=== PATIENT | female | born 1945 | race Caucasian/White ===

== ENCOUNTER 2020-06-20 20:55 | Observation (INO) ==
[2020-06-20] MEDS ORDERED: Naloxone 0.4 MG/ML INJ IVP PRN (23:24)
[2020-06-20] MEDS ORDERED: Ondansetron 4 MG/2 ML VIAL IVP PRN (23:24)
[2020-06-20] MEDS ORDERED: Perflutren Lipid Microsphere 1.3 ML in 0.9 % Sodium Chloride 8.7 ML IVP PRN (23:28)
[2020-06-21] MEDS ORDERED: *HR* Heparin 5,000 UNIT/ML VIAL IVP PRN ×2 (02:04)
[2020-06-21] MEDS ORDERED: Heparin 25,000UNIT/250ML 1/2NS 25,000 UNIT/250 ML IV.SOLN IVC SCH (02:15)
[2020-06-21] MEDS ORDERED: DilTIAZem 50 MG/50 ML IV.SOLN IVC SCH (02:15)
[2020-06-21 02:41] LABS: Hematocrit 41.6 % (35.3-44.9); Hemoglobin 13.6 g/dL (11.5-15.4); Mean Corpuscular HGB Conc 32.7 g/dL (31.6-35.5); Mean Corpuscular Hemoglobin 30.8 pg (28.0-33.3); Mean Corpuscular Volume 94.1 fL (83.0-100.0); Mean Platelet Volume 10.2 fL (9.4-12.4); Platelet Count 295 K/mcL (140-400); Red Blood Count 4.42 M/mcL (3.82-4.97); Red Cell Distribution Width 11.9 % (11.5-14.5); White Blood Count 13.6 K/mcL (4.3-11.1)
[2020-06-21 02:54] LABS: Prothrombin Time 12.1 Seconds (9.4-12.1)
[2020-06-21 03:02] LABS: BUN/Creatinine Ratio 21 (6-26); Blood Urea Nitrogen 19 mg/dL (8-23); Calcium 9.4 mg/dL (8.6-10.3); Carbon Dioxide 20 mEq/L (23-29); Chloride 110 mEq/L (98-107); Glucose 123 mg/dL (70-105); Osmolality,Calculated 284 (280-300); Potassium 4.3 mEq/L (3.5-5.1); Sodium 135 mEq/L (136-145); eGFR For African Americans > 60 (> 60); eGFR For Non-African Americans > 60 (> 60)
[2020-06-21 03:07] LABS: Troponin I 0.07 ng/mL (< 0.04)
[2020-06-21 03:15] LABS: Activated Partial Thrombo Time 163.1 Seconds (26.0-36.0)
[2020-06-21 06:58] LABS: Thyroid Stimulating Hormone 0.572 mcIU/mL (0.340-5.600)
[2020-06-21] MEDS: (Ezetimibe [Zetia] 10 MG Tablet) PO SCH (07:31)
[2020-06-21] MEDS: Budesonide/Formoterol 160/4.5 1 PUFF INH IH SCH ×2 (10:30→20:21)
[2020-06-21] MEDS: DilTIAZem CD (24hr) 180 MG CAP.ER.24H PO SCH (13:33)
[2020-06-21] MEDS ORDERED: Apixaban 5 MG TABLET PO SCH ×2 (16:00→21:00)
[2020-06-21] MEDS: Apixaban 5 MG TABLET PO SCH (20:16)
[2020-06-22 03:09] LABS: Basophils % 0.1 %; Eosinophils % 0.1 %; Hematocrit 38.8 % (35.3-44.9); Hemoglobin 13.2 g/dL (11.5-15.4); Immature Granulocytes % 0.9 % (0-4); Lymphocytes # 0.8 K/mcL (0.6-4.6); Lymphocytes % 4.1 %; Mean Corpuscular Hemoglobin 31.9 pg (28.0-33.3); Mean Corpuscular Volume 93.7 fL (83.0-100.0); Mean Platelet Volume 10.2 fL (9.4-12.4); Monocytes # 0.9 K/mcL (0.0-1.3); Monocytes % 4.8 %; Neutrophils # 17.5 K/mcL (1.6-8.9); Platelet Count 300 K/mcL (140-400); Red Blood Count 4.14 M/mcL (3.82-4.97); Red Cell Distribution Width 12.2 % (11.5-14.5); White Blood Count 19.4 K/mcL (4.3-11.1)
[2020-06-22 03:32] LABS: BUN/Creatinine Ratio 26 (6-26); Blood Urea Nitrogen 25 mg/dL (8-23); Calcium 9.4 mg/dL (8.6-10.3); Carbon Dioxide 20 mEq/L (23-29); Chloride 107 mEq/L (98-107); Glucose 128 mg/dL (70-105); Magnesium 2.1 mg/dL (1.6-2.6); Osmolality,Calculated 284 (280-300); Phosphorous 3.3 mg/dL (2.7-4.5); Potassium 4.3 mEq/L (3.5-5.1); Sodium 134 mEq/L (136-145); eGFR For African Americans > 60 (> 60); eGFR For Non-African Americans 57 (> 60)
[2020-06-22] MEDS: Budesonide/Formoterol 160/4.5 1 PUFF INH IH SCH (07:52)
[2020-06-22] MEDS: DilTIAZem CD (24hr) 180 MG CAP.ER.24H PO SCH (08:12)
[2020-06-22] MEDS: (Ezetimibe [Zetia] 10 MG Tablet) PO SCH (08:12)
[2020-06-22] MEDS: Apixaban 5 MG TABLET PO SCH (08:12)
[2020-06-22 09:40] LABS: Bilirubin,Urine Negative (Negative); Blood,Urine Negative (Negative); Clarity,Urine Clear (Clear); Color,Urine Light-Yellow (Yellow); Glucose,Urine (UA) Normal (Normal); Ketones,Urine Negative (Negative); Leukocyte Esterase,Urine Negative (Negative); Nitrite,Urine Negative (Negative); Protein,Urine Trace mg/dL (Neg-Trace); Specific Gravity,Urine 1.024 (1.010-1.025); Urobilinogen,Urine Normal (Normal)
[2020-06-22 10:33] VITALS: BP 116/66
== END 2020-06-22 13:12 | disposition home or self-care (01) ==
LOC: 3BNU → SUATTDRO 22:35
PROVIDERS: ADMIT Internal Medicine; ATTEND Internal Medicine

== ENCOUNTER 2020-06-28 20:25 | Observation (INO) ==
[2020-06-28 21:14] LABS: Basophils # 0.1 K/mcL (0.0-0.2); Basophils % 0.8 %; Eosinophils # 0.4 K/mcL (0.0-0.6); Eosinophils % 3.7 %; Hematocrit 40.6 % (35.3-44.9); Hemoglobin 13.6 g/dL (11.5-15.4); Immature Granulocytes % 1.1 % (0-4); Lymphocytes # 2.9 K/mcL (0.6-4.6); Lymphocytes % 25.1 %; Mean Corpuscular HGB Conc 33.5 g/dL (31.6-35.5); Mean Corpuscular Hemoglobin 31.2 pg (28.0-33.3); Mean Corpuscular Volume 93.1 fL (83.0-100.0); Mean Platelet Volume 9.5 fL (9.4-12.4); Monocytes # 1.2 K/mcL (0.0-1.3); Monocytes % 10.2 %; Neutrophils # 6.7 K/mcL (1.6-8.9); Platelet Count 358 K/mcL (140-400); Red Blood Count 4.36 M/mcL (3.82-4.97); Red Cell Distribution Width 12.1 % (11.5-14.5); Segmented Neutrophils % 59.1 %; White Blood Count 11.4 K/mcL (4.3-11.1)
[2020-06-28] MEDS: DilTIAZem 50 MG/50 ML IV.SOLN IVC SCH (21:31)
[2020-06-28 21:34] LABS: BUN/Creatinine Ratio 19 (6-26); Blood Urea Nitrogen 23 mg/dL (8-23); Calcium 9.4 mg/dL (8.6-10.3); Carbon Dioxide 23 mEq/L (23-29); Chloride 106 mEq/L (98-107); Glucose 116 mg/dL (70-105); Magnesium 2.1 mg/dL (1.6-2.6); Osmolality,Calculated 287 (280-300); Phosphorous 3.3 mg/dL (2.7-4.5); Potassium 3.8 mEq/L (3.5-5.1); Sodium 136 mEq/L (136-145); Troponin I < 0.03 ng/mL (< 0.04); eGFR For African Americans 54 (> 60); eGFR For Non-African Americans 45 (> 60)
[2020-06-29] MEDS: DilTIAZem 50 MG/50 ML IV.SOLN IVC SCH ×2 (01:26→05:40)
[2020-06-29] MEDS ORDERED: Naloxone 0.4 MG/ML INJ IVP PRN (01:26)
[2020-06-29] MEDS ORDERED: Ondansetron ODT 4 MG TAB.RAPDIS SL PRN (01:26)
[2020-06-29] MEDS ORDERED: Melatonin 3 MG TABLET PO PRN (01:26)
[2020-06-29 05:04] LABS: Basophils # 0.1 K/mcL (0.0-0.2); Basophils % 0.6 %; Eosinophils # 0.4 K/mcL (0.0-0.6); Eosinophils % 4.2 %; Hematocrit 41.3 % (35.3-44.9); Hemoglobin 13.6 g/dL (11.5-15.4); Immature Granulocytes % 0.8 % (0-4); Lymphocytes # 3.3 K/mcL (0.6-4.6); Lymphocytes % 34.2 %; Mean Corpuscular HGB Conc 32.9 g/dL (31.6-35.5); Mean Corpuscular Hemoglobin 31.7 pg (28.0-33.3); Mean Corpuscular Volume 96.3 fL (83.0-100.0); Mean Platelet Volume 9.8 fL (9.4-12.4); Monocytes # 0.9 K/mcL (0.0-1.3); Monocytes % 9.4 %; Neutrophils # 4.9 K/mcL (1.6-8.9); Platelet Count 334 K/mcL (140-400); Red Blood Count 4.29 M/mcL (3.82-4.97); Red Cell Distribution Width 12.3 % (11.5-14.5); Segmented Neutrophils % 50.8 %; White Blood Count 9.7 K/mcL (4.3-11.1)
[2020-06-29 05:14] LABS: BUN/Creatinine Ratio 17 (6-26); Blood Urea Nitrogen 18 mg/dL (8-23); Calcium 9.2 mg/dL (8.6-10.3); Carbon Dioxide 23 mEq/L (23-29); Chloride 108 mEq/L (98-107); Chol/HDL Ratio 3.2 (0-4.9); Glucose 105 mg/dL (70-105); Osmolality,Calculated 286 (280-300); Potassium 3.9 mEq/L (3.5-5.1); Prothrombin Time 11.6 Seconds (9.4-12.1); Sodium 137 mEq/L (136-145); eGFR For African Americans > 60 (> 60); eGFR For Non-African Americans 52 (> 60)
[2020-06-29 05:16] LABS: Activated Partial Thrombo Time 30.1 Seconds (26.0-36.0)
[2020-06-29] MEDS ORDERED: DilTIAZem CD (24hr) 180 MG CAP.ER.24H PO SCH (09:00)
[2020-06-29] MEDS: Apixaban 5 MG TABLET PO SCH ×2 (09:35→19:58)
[2020-06-29] MEDS: DilTIAZem CD (24hr) 240 MG CAP.ER.24H PO SCH (09:35)
[2020-06-29] MEDS: Acetaminophen 325 MG TABLET PO PRN ×2 (11:17→19:58)
[2020-06-29 11:18] LABS: Bilirubin,Urine Negative (Negative); Blood,Urine Negative (Negative); Clarity,Urine Clear (Clear); Color,Urine Light-Yellow (Yellow); Glucose,Urine (UA) Normal (Normal); Ketones,Urine Negative (Negative); Leukocyte Esterase,Urine Negative (Negative); Nitrite,Urine Negative (Negative); PH,Urine 6.5 pH Units (5.0-8.0); Protein,Urine Negative (Neg-Trace); Specific Gravity,Urine 1.017 (1.010-1.025); Urobilinogen,Urine Normal (Normal)
[2020-06-29 14:02] LABS: Folate 13.2 ng/mL (3.0-16.0)
[2020-06-30] MEDS: Acetaminophen 325 MG TABLET PO PRN (06:48)
[2020-06-30 06:53] VITALS: BP 129/79
[2020-06-30] MEDS: Apixaban 5 MG TABLET PO SCH (08:51)
[2020-06-30] MEDS: DilTIAZem CD (24hr) 240 MG CAP.ER.24H PO SCH (08:51)
[2020-06-30 14:41] LABS: Estimated Average Glucose 120 mg/dl; Hemoglobin A1C 5.8 %
== END 2020-06-30 15:12 | disposition home or self-care (01) ==
LOC: 2NENU 20:25 → EMEROOARM 20:25 → SUATTDRO 23:58 → 2NENU 06-29 00:24
PROVIDERS: ADMIT Family Medicine; ATTEND Internal Medicine